=== PATIENT | female | born 1990 | race Caucasian/White ===

== ENCOUNTER 2017-03-11 18:59 | Emergency (ER) | payer OTHER, MEDICAID ==
[2017-03-11] MEDS ORDERED: HYDROmorphONE 4 MG TAB PO (20:00)
[2017-03-11] MEDS: ONDANSETRON 4 MG INJ IV (20:07)
[2017-03-11] MEDS: KETOROLAC 30 MG INJ IV (20:07)
[2017-03-11] MEDS: SOD CHLORIDE 0.9% 1,000 ML IV (20:07)
[2017-03-11 20:19] LABS: ADD MAN DIFF? NO
[2017-03-11 20:22] LABS: WHITE BLOOD COUNT 10.8 10^3/ul (4.8-10.8)
[2017-03-11 20:22] LABS: BASOPHIL # 0.1 10^3/ul (0.0-0.1); BASOPHILS % 0.6 % (0.0-2.0); EOSINOPHILS # 0.2 10^3/ul (0.0-0.5); HEMATOCRIT 40.5 % (37.0-47.0); HEMOGLOBIN 14.1 g/dl (12.0-16.0); LYMPHOCYTES # 3.5 10^3/ul (0.8-2.9); LYMPHOCYTES % 32.5 % (15.0-51.0); MEAN CORPUSCULAR HEMOGLOBIN 30.3 pg (29.0-33.0); MEAN CORPUSCULAR HGB CONC 34.8 g/dl (32.0-37.0); MEAN CORPUSCULAR VOLUME 87.1 fl (82.0-101.0); MEAN PLATELET VOLUME 9.3 fl (7.4-10.4); MONOCYTE # 0.9 10^3/ul (0.3-0.9); MONOCYTES % 8.4 % (0.0-11.0); NEUTROPHIL # 6.1 10^3/ul (1.6-7.5); NEUTROPHILS % 56.2 % (39.0-77.0); PLATELET COUNT 279 10^3/UL (140-415); RED BLOOD COUNT 4.65 10^6/ul (4.20-5.40); RED CELL DISTRIBUTION WIDTH 12.7 % (11.5-14.5)
[2017-03-11 20:29] LABS: ADD UMIC YES; UR ASCORBIC ACID NEGATIVE (NEGATIVE); UR BACTERIA MANY /HPF (NONE SEEN); UR BILIRUBIN (Dip) NEGATIVE (NEGATIVE); UR BLOOD (Dip) 1+ mg/dL (NEGATIVE); UR CLARITY SLIGHTLY CLOUDY (CLEAR); UR COLOR YELLOW (YELLOW); UR GLUCOSE (Dip) NEGATIVE (NEGATIVE); UR KETONES (Dip) NEGATIVE (NEGATIVE); UR LEUKOCYTE ESTERASE (Dip) 2+ Leu/ul (NEGATIVE); UR MUCUS FEW /HPF (NONE SEEN); UR NITRITE (Dip) NEGATIVE (NEGATIVE); UR RBC 9 /HPF (0-5); UR SPECIFIC GRAVITY (Dip) 1.026 (1.003-1.030); UR SQUAMOUS EPITHELIAL CELL MODERATE /HPF (FEW); UR TOTAL PROTEIN (Dip) 2+ mg/dl (NEGATIVE); UR UROBILINOGEN (Dip) NEGATIVE (NEGATIVE); UR WBC 27 /HPF (0-5)
[2017-03-11 20:45] LABS: ALANINE AMINOTRANSFERASE 49 IU/L (13-69); ALBUMIN 3.7 g/dl (3.3-4.9); ALKALINE PHOSPHATASE 133 IU/L (42-121); ANION GAP 13 (8-16); ASPARTATE AMINO TRANSFERASE 31 IU/L (15-46); BILIRUBIN,INDIRECT 0.1 mg/dl (0-1.1); BILIRUBIN,TOTAL 0.1 mg/dl (0.2-1.3); BLOOD UREA NITROGEN 17 mg/dl (7-20); CALCIUM 8.9 mg/dl (8.4-10.2); CARBON DIOXIDE 25 mmol/L (21-31); CHLORIDE 104 mmol/L (97-110); CREATININE 0.73 mg/dl (0.44-1.00); GLUCOSE 89 mg/dl (70-220); LIPASE 221 U/L (23-300); POTASSIUM 4.1 mmol/L (3.5-5.1); SODIUM 138 mmol/L (135-144); TOTAL PROTEIN 7.8 g/dl (6.1-8.1)
[2017-03-11] MEDS: CEFTRIAXONE 1 GM/50 ML (PMX) 50 ML IVPB (21:36)
== END 2017-03-11 22:45 | disposition home or self-care (01) ==
LOC: FTE 18:59
DX: N30.01 Acute cystitis with hematuria (principal); H10.33 Unspecified acute conjunctivitis, bilateral; I10 Essential (primary) hypertension
CPT/HCPCS: 36415; 76705; 80053; 81001; 83690; 84703; 85025; 96374; 96375; 99285-25

== ENCOUNTER 2018-01-04 15:25 | Inpatient (IN) | payer OTHER ==
[2018-01-04] MEDS ORDERED: METHYLERGONOVINE 0.2 MG INJ IM ×2 (16:00→21:00)
[2018-01-04] MEDS ORDERED: MISOPROSTOL 200 MCG TAB PR ×2 (16:00→21:00)
[2018-01-04] MEDS ORDERED: CARBOPROST 250 MCG INJ IM ×2 (16:00→21:00)
[2018-01-04] MEDS: LACTATED RINGER'S 1,000 ML IV (16:25)
[2018-01-04 16:26] LABS: ADD MAN DIFF? NO; BASOPHILS % 0.3 % (0.0-2.0); EOSINOPHILS # 0.1 10^3/ul (0.0-0.5); EOSINOPHILS % 0.7 % (0.0-7.0); HEMATOCRIT 31.4 % (37.0-47.0); HEMOGLOBIN 10.2 g/dl (12.0-16.0); LYMPHOCYTES # 1.4 10^3/ul (0.8-2.9); LYMPHOCYTES % 10.3 % (15.0-51.0); MEAN CORPUSCULAR HEMOGLOBIN 27.1 pg (29.0-33.0); MEAN CORPUSCULAR HGB CONC 32.5 g/dl (32.0-37.0); MEAN CORPUSCULAR VOLUME 83.3 fl (82.0-101.0); MEAN PLATELET VOLUME 9.5 fl (7.4-10.4); MONOCYTE # 0.7 10^3/ul (0.3-0.9); MONOCYTES % 5.7 % (0.0-11.0); NEUTROPHIL # 10.8 10^3/ul (1.6-7.5); NEUTROPHILS % 82.6 % (39.0-77.0); PLATELET COUNT 320 10^3/UL (140-415); RED BLOOD COUNT 3.77 10^6/ul (4.20-5.40); RED CELL DISTRIBUTION WIDTH 13.8 % (11.5-14.5)
[2018-01-04 16:26] LABS: WHITE BLOOD COUNT 13.1 10^3/ul (4.8-10.8)
[2018-01-04] MEDS ORDERED: METOCLOPRAMIDE 10 MG INJ ×2 (16:44→17:36)
[2018-01-04] MEDS ORDERED: CITRIC ACID/NA CITRATE 30 ML CUP (16:44)
[2018-01-04] MEDS ORDERED: ONDANSETRON 4 MG INJ ×2 (16:44→17:36)
[2018-01-04 16:46] LABS: INR 0.92; PROTIME 12.4 Sec (11.9-14.9)
[2018-01-04 16:47] LABS: PARTIAL THROMBOPLASTIN TIME 34.5 Sec (23.0-35.0)
[2018-01-04] MEDS: ONDANSETRON 4 MG INJ IV (16:50)
[2018-01-04] MEDS: CITRIC ACID/NA CITRATE 30 ML CUP PO (16:50)
[2018-01-04] MEDS: METOCLOPRAMIDE 10 MG INJ IV (16:51)
[2018-01-04] MEDS ORDERED: PHENYLephrine (100 MCG/ML) 5ML SYG (17:05)
[2018-01-04] MEDS ORDERED: morphine SULFATE/PF (10 MG/10 ML) INJ (17:05)
[2018-01-04] MEDS ORDERED: OXYTOCIN 10 UNIT INJ (17:05)
[2018-01-04] MEDS ORDERED: CEFAZOLIN 1 GM INJ (17:18)
[2018-01-04] MEDS ORDERED: DEXAMETHASONE 4 MG/ML 1 ML INJ (17:36)
[2018-01-04] MEDS ORDERED: KETOROLAC 30 MG INJ (17:36)
[2018-01-04] MEDS ORDERED: DIPHENHYDRAMINE 50 MG INJ IV (18:00)
[2018-01-04] MEDS ORDERED: morphine 2 MG INJ IV ×2 (18:00)
[2018-01-04] MEDS ORDERED: HYDROmorphONE 0.5 MG/0.5 ML SYG IV ×2 (18:00)
[2018-01-04] MEDS ORDERED: HYDROCODONE/APAP (5/325) TAB PO (18:00)
[2018-01-04] MEDS ORDERED: ACETAMINOPHEN 500 MG TAB PO (18:00)
[2018-01-04] MEDS ORDERED: ONDANSETRON 4 MG INJ IV (18:00)
[2018-01-04] MEDS ORDERED: NALOXONE (0.4 MG/ML) INJ IV (18:00)
[2018-01-04] MEDS ORDERED: NALBUPHINE HCL (10 MG/1 ML) INJ IV (18:00)
[2018-01-04] MEDS ORDERED: OXYTOCIN 30 UNITS/LR 500 ML IV ×2 (18:08→21:00)
[2018-01-04] MEDS: CEFAZOLIN 2 GM/50 ML (PMX) 50 ML IV ×2 (18:54→23:00)
[2018-01-04] MEDS: OXYTOCIN 30 UNITS/LR 500 ML IV ×2 (18:54→21:29)
[2018-01-04 19:14] LABS: BARBITURATES Negative (NEGATIVE); CANNABINOIDS Negative (NEGATIVE); COCAINE Negative (NEGATIVE); OPIATES Negative (NEGATIVE)
[2018-01-04 19:43] LABS: BENZODIAZEPINES Negative (NEGATIVE)
[2018-01-04 20:17] LABS: AMPHETAMINE/METHAMPHETAMINE POSITIVE (NEGATIVE)
[2018-01-04] MEDS: SENNA/DOCUSATE NA (8.6MG/50MG) TAB PO (23:00)
[2018-01-05] MEDS: CEFAZOLIN 2 GM/50 ML (PMX) 50 ML IV ×2 (06:06→12:27)
[2018-01-05] MEDS: KETOROLAC 30 MG INJ IV ×2 (06:07→14:36)
[2018-01-05 07:09] LABS: ADD MAN DIFF? NO
[2018-01-05 07:12] LABS: BASOPHILS % 0.2 % (0.0-2.0); EOSINOPHILS % 0.1 % (0.0-7.0); HEMATOCRIT 25.2 % (37.0-47.0); HEMOGLOBIN 8.1 g/dl (12.0-16.0); LYMPHOCYTES # 1.7 10^3/ul (0.8-2.9); LYMPHOCYTES % 9.8 % (15.0-51.0); MEAN CORPUSCULAR HEMOGLOBIN 26.8 pg (29.0-33.0); MEAN CORPUSCULAR HGB CONC 32.1 g/dl (32.0-37.0); MEAN CORPUSCULAR VOLUME 83.4 fl (82.0-101.0); MEAN PLATELET VOLUME 9.8 fl (7.4-10.4); MONOCYTE # 0.8 10^3/ul (0.3-0.9); MONOCYTES % 4.8 % (0.0-11.0); NEUTROPHIL # 14.5 10^3/ul (1.6-7.5); NEUTROPHILS % 84.6 % (39.0-77.0); PLATELET COUNT 257 10^3/UL (140-415); RED BLOOD COUNT 3.02 10^6/ul (4.20-5.40); RED CELL DISTRIBUTION WIDTH 13.8 % (11.5-14.5)
[2018-01-05 07:12] LABS: WHITE BLOOD COUNT 17.2 10^3/ul (4.8-10.8)
[2018-01-05 10:18] LABS: ADD MAN DIFF? NO
[2018-01-05 10:19] LABS: BASOPHILS % 0.2 % (0.0-2.0); EOSINOPHILS # 0.1 10^3/ul (0.0-0.5); EOSINOPHILS % 0.6 % (0.0-7.0); HEMATOCRIT 24.3 % (37.0-47.0); HEMOGLOBIN 7.8 g/dl (12.0-16.0); LYMPHOCYTES # 1.6 10^3/ul (0.8-2.9); LYMPHOCYTES % 11.6 % (15.0-51.0); MEAN CORPUSCULAR HEMOGLOBIN 26.9 pg (29.0-33.0); MEAN CORPUSCULAR HGB CONC 32.1 g/dl (32.0-37.0); MEAN CORPUSCULAR VOLUME 83.8 fl (82.0-101.0); MEAN PLATELET VOLUME 9.4 fl (7.4-10.4); MONOCYTE # 0.8 10^3/ul (0.3-0.9); MONOCYTES % 6.1 % (0.0-11.0); NEUTROPHIL # 11.2 10^3/ul (1.6-7.5); PLATELET COUNT 252 10^3/UL (140-415); RED CELL DISTRIBUTION WIDTH 13.9 % (11.5-14.5)
[2018-01-05 10:19] LABS: WHITE BLOOD COUNT 13.9 10^3/ul (4.8-10.8)
[2018-01-05] MEDS: SENNA/DOCUSATE NA (8.6MG/50MG) TAB PO ×2 (10:55→22:04)
[2018-01-05] MEDS: LACTATED RINGER'S 1,000 ML IV ×3 (10:55→23:30)
[2018-01-05 16:13] LABS: RAPID PLASMA REAGIN REACTIVE (NR)
[2018-01-05] MEDS: IBUPROFEN 600 MG TAB PO (18:00)
[2018-01-05] MEDS: OXYCODONE/ACETAMINOPHEN (5/325) TAB PO ×2 (18:49→22:04)
[2018-01-05] MEDS: FERROUS SULFATE (EC) 325 MG TAB PO (22:04)
[2018-01-06] MEDS: IBUPROFEN 600 MG TAB PO ×5 (00:01→23:20)
[2018-01-06] MEDS: LACTATED RINGER'S 1,000 ML IV ×2 (07:30→15:10)
[2018-01-06] MEDS: OXYCODONE/ACETAMINOPHEN (5/325) TAB PO ×2 (09:08→17:01)
[2018-01-06] MEDS: SENNA/DOCUSATE NA (8.6MG/50MG) TAB PO ×2 (09:08→21:16)
[2018-01-06] MEDS: FERROUS SULFATE (EC) 325 MG TAB PO ×2 (09:08→21:16)
[2018-01-06] MEDS: LABETALOL HCL 20MG INJ IV (10:56)
[2018-01-06 12:16] LABS: ADD MAN DIFF? NO
[2018-01-06 12:19] LABS: BASOPHILS % 0.3 % (0.0-2.0); EOSINOPHILS # 0.1 10^3/ul (0.0-0.5); EOSINOPHILS % 0.9 % (0.0-7.0); HEMATOCRIT 26.2 % (37.0-47.0); HEMOGLOBIN 8.5 g/dl (12.0-16.0); LYMPHOCYTES # 1.9 10^3/ul (0.8-2.9); LYMPHOCYTES % 12.5 % (15.0-51.0); MEAN CORPUSCULAR HEMOGLOBIN 27.1 pg (29.0-33.0); MEAN CORPUSCULAR HGB CONC 32.4 g/dl (32.0-37.0); MEAN CORPUSCULAR VOLUME 83.4 fl (82.0-101.0); MEAN PLATELET VOLUME 9.8 fl (7.4-10.4); MONOCYTE # 0.8 10^3/ul (0.3-0.9); MONOCYTES % 5.4 % (0.0-11.0); NEUTROPHILS % 80.1 % (39.0-77.0); PLATELET COUNT 312 10^3/UL (140-415); RED BLOOD COUNT 3.14 10^6/ul (4.20-5.40); RED CELL DISTRIBUTION WIDTH 14.4 % (11.5-14.5)
[2018-01-06 12:48] LABS: ALANINE AMINOTRANSFERASE 32 IU/L (13-69); ALBUMIN 2.4 g/dl (3.3-4.9); ALBUMIN/GLOBULIN RATIO 0.75; ALKALINE PHOSPHATASE 145 IU/L (42-121); ANION GAP 5 (5-13); ASPARTATE AMINO TRANSFERASE 70 IU/L (15-46); BILIRUBIN,INDIRECT 0.2 mg/dl (0-1.1); BILIRUBIN,TOTAL 0.2 mg/dl (0.2-1.3); BLOOD UREA NITROGEN 8 mg/dl (7-20); CARBON DIOXIDE 24 mmol/L (21-31); CHLORIDE 107 mmol/L (97-110); CREATININE 0.68 mg/dl (0.44-1.00); GLUCOSE 81 mg/dl (70-220); POTASSIUM 3.9 mmol/L (3.5-5.1); SODIUM 136 mmol/L (135-144); TOTAL PROTEIN 5.6 g/dl (6.1-8.1)
[2018-01-06] MEDS: AL HYDROX/MG HYDROX/SIMETH 30 ML CUP PO (13:34)
[2018-01-06 14:31] LABS: FLUORESCENT TREPONEMAL AB REACTIVE (NON-REACTIVE)
[2018-01-06] MEDS: MAGNESIUM SULFATE 2 GM/50 ML 50 ML IVPB (14:49)
[2018-01-06] MEDS: MAGNESIUM SULFATE 4 GM/100 ML 100 ML IVPB (14:56)
[2018-01-06 14:58] LABS: HEPATITIS B SURFACE ANTIGEN NEGATIVE (NEGATIVE)
[2018-01-06] MEDS: FAMOTIDINE 20 MG TAB PO ×2 (15:00→21:16)
[2018-01-06 15:15] LABS: HEPATITIS C VIRAL ANTIBODY NEGATIVE (NEGATIVE); HIV 1&2 ANTIBODY NEGATIVE (NEGATIVE)
[2018-01-06] MEDS: MAGNESIUM SULFATE 20 GM/500 ML 500 ML IV (15:35)
[2018-01-06 16:00] LABS: LACTATE DEHYDROGENASE 555 IU/L (313-618)
[2018-01-06 16:24] LABS: HEPATITIS B SURFACE ANTIBODY POSITIVE (NEGATIVE)
[2018-01-06 19:14] LABS: MAGNESIUM 3.9 mg/dl (1.7-2.5)
[2018-01-06] MEDS: POLYSACCHARIDE IRON COMPLEX CAP PO (21:16)
[2018-01-06] MEDS: LABETALOL 100 MG TAB PO ×2 (22:20→23:23)
[2018-01-06 23:44] LABS: ADD MAN DIFF? NO
[2018-01-06 23:45] LABS: BASOPHILS % 0.2 % (0.0-2.0); EOSINOPHILS # 0.3 10^3/ul (0.0-0.5); HEMATOCRIT 27.5 % (37.0-47.0); HEMOGLOBIN 8.7 g/dl (12.0-16.0); LYMPHOCYTES # 1.9 10^3/ul (0.8-2.9); LYMPHOCYTES % 14.8 % (15.0-51.0); MEAN CORPUSCULAR HEMOGLOBIN 26.9 pg (29.0-33.0); MEAN CORPUSCULAR HGB CONC 31.6 g/dl (32.0-37.0); MEAN CORPUSCULAR VOLUME 85.1 fl (82.0-101.0); MEAN PLATELET VOLUME 9.1 fl (7.4-10.4); MONOCYTE # 0.8 10^3/ul (0.3-0.9); MONOCYTES % 5.9 % (0.0-11.0); NEUTROPHIL # 9.9 10^3/ul (1.6-7.5); NEUTROPHILS % 76.4 % (39.0-77.0); PLATELET COUNT 317 10^3/UL (140-415); RED BLOOD COUNT 3.23 10^6/ul (4.20-5.40); RED CELL DISTRIBUTION WIDTH 14.3 % (11.5-14.5)
[2018-01-06] MEDS: HYDROmorphONE 1 MG/ML SYG IV (23:50)
[2018-01-07 00:03] LABS: MAGNESIUM 4.4 mg/dl (1.7-2.5)
[2018-01-07] MEDS ORDERED: HYDROmorphONE 2 MG/ML SYG (00:12)
[2018-01-07 00:13] LABS: ALANINE AMINOTRANSFERASE 30 IU/L (13-69); ALBUMIN/GLOBULIN RATIO 0.66; ALKALINE PHOSPHATASE 151 IU/L (42-121); ANION GAP 2 (5-13); ASPARTATE AMINO TRANSFERASE 66 IU/L (15-46); BILIRUBIN,INDIRECT 0.1 mg/dl (0-1.1); BILIRUBIN,TOTAL 0.1 mg/dl (0.2-1.3); BLOOD UREA NITROGEN 8 mg/dl (7-20); CALCIUM 7.6 mg/dl (8.4-10.2); CARBON DIOXIDE 31 mmol/L (21-31); CHLORIDE 103 mmol/L (97-110); GLUCOSE 100 mg/dl (70-220); POTASSIUM 4.8 mmol/L (3.5-5.1); SODIUM 136 mmol/L (135-144)
[2018-01-07] MEDS: HYDROmorphONE 2 MG/ML SYG IV (00:23)
[2018-01-07] MEDS: AMLODIPINE 5 MG TAB PO ×2 (01:19→08:56)
[2018-01-07] MEDS: LACTATED RINGER'S 1,000 ML IV ×3 (01:24→20:00)
[2018-01-07] MEDS: NA PHOSPHATE/BIPHOS 133 ML ENEMA PR (01:25)
[2018-01-07] MEDS: MAGNESIUM SULFATE 20 GM/500 ML 500 ML IV ×2 (01:25→12:06)
[2018-01-07] MEDS: SOD CHLORIDE 0.9% 100 ML (03:47)
[2018-01-07] MEDS: IOHEXOL 300MG/ML 150 ML BTL (03:47)
[2018-01-07] MEDS: IBUPROFEN 600 MG TAB PO ×3 (05:24→18:39)
[2018-01-07 07:55] LABS: MAGNESIUM 4.6 mg/dl (1.7-2.5)
[2018-01-07] MEDS: FERROUS SULFATE (EC) 325 MG TAB PO ×2 (08:57→21:16)
[2018-01-07] MEDS: SENNA/DOCUSATE NA (8.6MG/50MG) TAB PO ×2 (08:58→21:17)
[2018-01-07] MEDS: LABETALOL 100 MG TAB PO ×2 (09:00→21:16)
[2018-01-07] MEDS: FAMOTIDINE 20 MG TAB PO ×2 (09:00→21:16)
[2018-01-07] MEDS: POLYSACCHARIDE IRON COMPLEX CAP PO ×2 (09:00→21:16)
[2018-01-07 12:29] LABS: ADD MAN DIFF? NO
[2018-01-07 12:31] LABS: WHITE BLOOD COUNT 12.7 10^3/ul (4.8-10.8)
[2018-01-07 12:31] LABS: BASOPHILS % 0.2 % (0.0-2.0); EOSINOPHILS # 0.3 10^3/ul (0.0-0.5); EOSINOPHILS % 2.4 % (0.0-7.0); HEMOGLOBIN 8.8 g/dl (12.0-16.0); LYMPHOCYTES # 1.4 10^3/ul (0.8-2.9); LYMPHOCYTES % 11.3 % (15.0-51.0); MEAN CORPUSCULAR HEMOGLOBIN 27.2 pg (29.0-33.0); MEAN CORPUSCULAR HGB CONC 32.6 g/dl (32.0-37.0); MEAN CORPUSCULAR VOLUME 83.6 fl (82.0-101.0); MONOCYTE # 0.6 10^3/ul (0.3-0.9); MONOCYTES % 4.8 % (0.0-11.0); NEUTROPHIL # 10.2 10^3/ul (1.6-7.5); NEUTROPHILS % 80.5 % (39.0-77.0); PLATELET COUNT 352 10^3/UL (140-415); RED BLOOD COUNT 3.23 10^6/ul (4.20-5.40); RED CELL DISTRIBUTION WIDTH 14.6 % (11.5-14.5)
[2018-01-07 12:53] LABS: MAGNESIUM 4.9 mg/dl (1.7-2.5)
[2018-01-07 17:23] LABS: ADD UMIC YES; UR ASCORBIC ACID NEGATIVE (NEGATIVE); UR BACTERIA FEW /HPF (NONE SEEN); UR BILIRUBIN (Dip) NEGATIVE (NEGATIVE); UR BLOOD (Dip) 1+ mg/dL (NEGATIVE); UR CLARITY CLEAR (CLEAR); UR COLOR STRAW (YELLOW); UR GLUCOSE (Dip) NEGATIVE (NEGATIVE); UR KETONES (Dip) NEGATIVE (NEGATIVE); UR LEUKOCYTE ESTERASE (Dip) NEGATIVE Leu/ul (NEGATIVE); UR NITRITE (Dip) NEGATIVE (NEGATIVE); UR RBC 12 /HPF (0-5); UR TOTAL PROTEIN (Dip) NEGATIVE (NEGATIVE); UR UROBILINOGEN (Dip) NEGATIVE (NEGATIVE); UR WBC 3 /HPF (0-5)
[2018-01-07] MEDS: OXYCODONE/ACETAMINOPHEN (5/325) TAB PO (21:17)
[2018-01-08] MEDS: IBUPROFEN 600 MG TAB PO ×4 (00:09→18:21)
[2018-01-08] MEDS: OXYCODONE/ACETAMINOPHEN (5/325) TAB PO (01:15)
[2018-01-08] MEDS: LACTATED RINGER'S 1,000 ML IV ×2 (04:11→18:26)
[2018-01-08] MEDS: SENNA/DOCUSATE NA (8.6MG/50MG) TAB PO ×2 (08:06→21:36)
[2018-01-08] MEDS: FAMOTIDINE 20 MG TAB PO ×2 (09:30→21:36)
[2018-01-08] MEDS: FERROUS SULFATE (EC) 325 MG TAB PO ×2 (09:30→21:35)
[2018-01-08] MEDS: AMLODIPINE 5 MG TAB PO (09:31)
[2018-01-08] MEDS: LABETALOL 100 MG TAB PO ×2 (09:33→21:36)
[2018-01-08] MEDS: POLYSACCHARIDE IRON COMPLEX CAP PO ×2 (09:33→21:35)
[2018-01-08] MEDS: PENICILLIN G BENZ 2.4 MIL UNIT SYG IM (15:32)
[2018-01-08] MEDS: HYDROCODONE/APAP (5/325) TAB PO (19:19)
[2018-01-09] MEDS: IBUPROFEN 600 MG TAB PO ×2 (00:10→06:07)
[2018-01-09] MEDS: OXYCODONE/ACETAMINOPHEN (5/325) TAB PO ×2 (08:32→15:25)
[2018-01-09] MEDS: DIPHTH/TET/ACEL PERTUSS (ADULT) 0.5 ML VIAL IM* (08:46)
[2018-01-09] MEDS: FERROUS SULFATE (EC) 325 MG TAB PO (09:51)
[2018-01-09] MEDS: SENNA/DOCUSATE NA (8.6MG/50MG) TAB PO (09:51)
[2018-01-09] MEDS: POLYSACCHARIDE IRON COMPLEX CAP PO (09:51)
[2018-01-09] MEDS: FAMOTIDINE 20 MG TAB PO (09:53)
[2018-01-09] MEDS: LABETALOL 100 MG TAB PO (09:53)
[2018-01-09] MEDS: AMLODIPINE 5 MG TAB PO (09:53)
[2018-01-09] MEDS: IBUPROFEN 800 MG TAB PO (11:57)
[2018-01-09] MEDS: MAGNESIUM CITRATE 300 ML BTL PO (12:23)
[2018-01-15] MEDS ORDERED: PENICILLIN G BENZ 2.4 MIL UNIT SYG IM (13:00)
[2018-01-22] MEDS ORDERED: PENICILLIN G BENZ 2.4 MIL UNIT SYG IM (13:00)
== END 2018-01-09 16:10 | disposition home or self-care (01) | DRG 787 ==
LOC: OBT 15:25 → PP1 01-06 16:37 → L-D 15:26 → OBT 15:30 → L-D 15:30 → PP1 20:44
PROVIDERS: Obstetrics & Gynecology
PROC: 10D00Z1 Extraction of Products of Conception, Low, Open Approach (ICD-10-PCS; principal; 2018-01-04 17:00)
PROC: 3E033VJ Introduction of Other Hormone into Peripheral Vein, Percutaneous Approach (ICD-10-PCS; 2018-01-04 17:00)
DX: O60.14X0 Preterm labor third trimester with preterm delivery third trimester, not applicable or unspecified (principal); O98.12 Syphilis complicating childbirth; O34.211 Maternal care for low transverse scar from previous cesarean delivery; O09.33 Supervision of pregnancy with insufficient antenatal care, third trimester; O13.4 Gestational [pregnancy-induced] hypertension without significant proteinuria, complicating childbirth; Z37.0 Single live birth; Z3A.32 32 weeks gestation of pregnancy
CPT/HCPCS: 74177; 76705; 76815; 80053; 80307; 81001; 83615; 83735; 85025; 85610; 85730; 86592; 86703; 86706; 86803; 86850; 86900; 86901; 87086; 87285; 87340; 90715; 99464